=== PATIENT | female | born 1990 | race American Indian/Alaskan Native ===

== ENCOUNTER 2018-01-11 17:14 | Emergency (ER) | payer MEDICAID ==
[2018-01-11] MEDS ORDERED: DELTASONE PO ONE (21:26)
[2018-01-11] MEDS ORDERED: MOTRIN PO ONE (21:26)
[2018-01-11] MEDS ORDERED: ZOFRAN ODT PO ONE (21:26)
--- NOTE | 2018-01-11 21:26 | Emergency Department Report ---
ED ENT HPI - General Chief complaint: Sore Throat Stated complaint: C/O WHITE KNOTS IN THROAT/EAR BLEEDING Time Seen by Provider: 01/11/18 20:11 Source: patient, family Mode of arrival: Ambulatory Limitations: No Limitations - History of Present Illness Initial comments: Patient here reports that she is sore throat and pain that's radiating up into her ears and ongoing for 6 days. She is reporting possible exposure to strep and reported that she is having difficulty swallowing. Sore throat is a 10 out of 10 and a can. Worse with swallowing and eating. Pain is constant and not relieved by Tylenol. She reports chills but no fever. She is also reporting that the front of her neck is painful. She denies any headache. Denies any abdominal pain or vomiting. Last menstrual period was 01/04/2018. She is also reporting that she has white pus of the back of her throat. Patient has a history of asthma and breast reduction. Denies any drooling. MD complaint: sore throat, ear pain Onset/Timin -: days(s) Location: R ear, L ear, throat Severity: moderate Severity scale (0 -10): 6 Quality: aching Consistency: constant Improves with: none Worsens with: swallowing, eating Associated Symptoms: pain with swallowing, sore throat. denies: fever, cough, gum swelling, toothache, tinnitus, hearing loss, discharge from ear, rhinorrhea - Related Data Home Medications Medication Instructions Recorded Confirmed Last Taken Iron 325 mg PO DAILY 07/06/15 07/06/15 07/02/15 Previous Rx's Medication Instructions Recorded Last Taken Type Cephalexin [Keflex] 500 mg PO Q8HR #21 cap 07/06/15 Unknown Rx Ibuprofen [Motrin] 600 mg PO Q8H PRN #12 tablet 01/11/18 Unknown Rx Penicillin V Potassium 500 mg PO Q8H 10 Days #30 tablet 01/11/18 Unknown Rx Allergies Allergy/AdvReac Type Severity Reaction Status Date / Time No Known Allergies Allergy Verified 08/10/13 02:51 ED Dental HPI - General Chief complaint: Sore Throat Stated complaint: C/O WHITE KNOTS IN THROAT/EAR BLEEDING Time Seen by Provider: 01/11/18 20:11 Source: patient Mode of arrival: Ambulatory Limitations: No Limitations - Related Data Home Medications Medication Instructions Recorded Confirmed Last Taken Iron 325 mg PO DAILY 07/06/15 07/06/15 07/02/15 Previous Rx's Medication Instructions Recorded Last Taken Type Cephalexin [Keflex] 500 mg PO Q8HR #21 cap 07/06/15 Unknown Rx Ibuprofen [Motrin] 600 mg PO Q8H PRN #12 tablet 01/11/18 Unknown Rx Penicillin V Potassium 500 mg PO Q8H 10 Days #30 tablet 01/11/18 Unknown Rx Allergies Allergy/AdvReac Type Severity Reaction Status Date / Time No Known Allergies Allergy Verified 08/10/13 02:51 ED Review of Systems ROS: Stated complaint: C/O WHITE KNOTS IN THROAT/EAR BLEEDING Other details as noted in HPI Constitutional: chills. denies: fever Eyes: denies: eye pain, eye discharge ENT: ear pain, throat pain. denies: dental pain, hearing loss, epistaxis, congestion Respiratory: denies: cough, orthopnea, shortness of breath, SOB with exertion, SOB at rest, stridor, wheezing Cardiovascular: denies: chest pain, palpitations, edema, syncope Gastrointestinal: denies: abdominal pain, nausea, vomiting Musculoskeletal: denies: back pain, joint swelling, arthralgia, myalgia Skin: denies: rash, lesions Neurological: denies: headache, weakness ED Past Medical Hx - Past Medical History Previous Medical History?: Yes Hx Hypertension: No Hx CVA: No Hx Heart Attack/AMI: No Hx Congestive Heart Failure: No Hx Diabetes: No Hx Deep Vein Thrombosis: No Hx Pulmonary Embolism: No Hx GERD: No Hx Liver Disease: No Hx Renal Disease: No Hx Sickle Cell Disease: No Hx Arthritis: No Hx Headaches / Migraines: No Hx Seizures: No Hx Kidney Stones: No Hx Psychiatric Treatment: No Hx Asthma: Yes Hx COPD: No Hx Tuberculosis: No Hx Dementia: No Hx HIV: No - Surgical History Past Surgical History?: Yes Hx Coronary Stent: No Hx Open Heart Surgery: No Hx Pacemaker: No Hx Internal Defibrillator: No Hx Cholecystectomy: No Hx Appendectomy: No Hx Breast Surgery: Yes (reduction) - Family History Family history: hypertension - Social History Smoking Status: Never Smoker Substance Use Type: None Other Social History: Patient is single and lives with family - Medications Home Medications: Home Medications Medication Instructions Recorded Confirmed Last Taken Type Cephalexin [Keflex] 500 mg PO Q8HR #21 cap 07/06/15 Unknown Rx Iron 325 mg PO DAILY 07/06/15 07/06/15 07/02/15 History Ibuprofen [Motrin] 600 mg PO Q8H PRN #12 tablet 01/11/18 Unknown Rx Penicillin V Potassium 500 mg PO Q8H 10 Days #30 tablet 01/11/18 Unknown Rx ED Physical Exam - General Limitations: No Limitations General appearance: alert, in no apparent distress - Head Head exam: Present: atraumatic, normocephalic, normal inspection - Eye Eye exam: Present: normal appearance, PERRL, EOMI Pupils: Present: normal accommodation - ENT ENT exam: Present: mucous membranes moist, TM's normal bilaterally, normal external ear exam. Absent: normal exam, normal orophraynx - Expanded ENT Exam Expanded Ear exam: Present: normal external inspection Mouth exam: Present: normal external inspection, tongue normal. Absent: drooling, trismus, muffled voice Teeth exam: Present: normal inspection Throat exam: Positive: tonsillar erythema, tonsillomegaly (mild tonsillar enlargement about 1+), other (positive pharyngeal erythema and exudate.). Negative: normal inspection, tonsillar exudate, R peritonsillar mass, L peritonsillar mass - Neck Neck exam: Present: normal inspection, full ROM, lymphadenopathy, other (no C- spine tenderness). Absent: tenderness, meningismus - Respiratory Respiratory exam: Present: normal lung sounds bilaterally. Absent: respiratory distress, chest wall tenderness - Cardiovascular Cardiovascular Exam: Present: regular rate, normal rhythm, normal heart sounds. Absent: systolic murmur, diastolic murmur - GI/Abdominal GI/Abdominal exam: Present: soft, normal bowel sounds. Absent: distended, tenderness, guarding, rebound, rigid - Extremities Exam Extremities exam: Present: normal inspection, full ROM, normal capillary refill , other (no clubbing, cyanosis or edema. +2 pulses all extremities and no neurovascular compromise). Absent: tenderness, pedal edema, joint swelling - Back Exam Back exam: Present: normal inspection - Neurological Exam Neurological exam: Present: alert, oriented X3, normal gait - Psychiatric Psychiatric exam: Present: normal affect, normal mood - Skin Skin exam: Present: warm, dry, intact, normal color. Absent: rash ED Course Vital Signs 01/11/18 17:43 Temperature 98.4 F Pulse Rate 78 Respiratory 18 Rate Blood Pressure 105/62 O2 Sat by Pulse 100 Oximetry - Reevaluation(s) Reevaluation #1: 01/11/18 21:27 Patient with exudative pharyngitis and to receive the physical 60 mg by mouth, Motrin 800 mg by mouth and Zofran 8 mg ODT. I will reevaluate. Reevaluation #2: 01/11/18 22:57 Patient reports that pain has been relieved and her throat feels better after Motrin and Deltasone ED Medical Decision Making - Medical Decision Making ED course: Patient here reports that she is having in sore throat as radiated up in her ears 6 days. She reports pus at the back of her throat. Patient found to have exudative pharyngitis with anterior cervical chain lymphadenopathy , reports chills. Based on [facility] criteria with patient with absence of cough with exudative oropharynx, enlarged lymph nodes to neck and chills patient will be treated for strep throat. Diagnosis and treatment plan explained to patient she was understanding. Patient gave in Motrin 800 mg by mouth and the vessels 6 and milligrams by mouth in emergency room and she said she felt better. Patient discharged home in stable condition with prescription for penicillin V, Motrin and to follow-up with her primary care physician and 2 days. Critical care attestation.: If time is entered above; I have spent that time in minutes in the direct care of this critically ill patient, excluding procedure time. ED Disposition Clinical Impression: Exudative pharyngitis, Lymphadenopathy, anterior cervical Disposition: [id number] TO HOME OR SELFCARE Is pt being admited?: No Does the pt Need Aspirin: No Condition: Stable Instructions: Strep Throat (ED) Additional Instructions: Gargle with warm salt water 3-4 times a day and distal helped to relieve sore throat Take antibiotic for strep throat Take Motrin for sore throat. Follow up with a primary care physician in 2 days and if he do not have a primary care physician follow-up with [facility]. Prescriptions: Ibuprofen [Motrin] 600 mg PO Q8H PRN #12 tablet PRN Reason: Pain Penicillin V Potassium 500 mg PO Q8H 10 Days #30 tablet Referrals: PRIMARY CARE, [Primary Care Provider] - 01/13/18 [facility] [Outside] - 01/13/18 Forms: Accompanied Note, Work/School Release Form(ED)
[2018-01-11 23:21] VITALS: BP 114/69
== END 2018-01-11 23:18 | disposition home or self-care (01) ==
LOC: ED 17:14
DX: J02.9 Acute pharyngitis, unspecified (principal); R59.0 Localized enlarged lymph nodes; J45.909 Unspecified asthma, uncomplicated
CPT/HCPCS: 99282; J7512; Q0162